=== PATIENT | male | born 1935 | race Caucasian/White ===

== ENCOUNTER → 2016-06-03 | Outpatient (CLI) | payer OTHER ==
--- NOTE | ~2016-06-03 | CT57 ---
[facility] A Service of [facility] RADIOLOGY TEXT RESULTS PATIENT: HERNÁN FAY LOCATION: [facility] : 37 UNIT #: [id number] AGE: [address]: Jann Martin MD SEX: M ORDER DR: [id number] [facility]. [place], [place] [address] [id number] O MR#: [id number] Acc #: [id number] NAME: HERNÁN FAY : 1935 SEX: M STUDY DATE/TIME: 06/03/2016 8:00 UNIT: [facility] ROOM: STUDY DESCRIPTION: CT Chest Wo Cont Attending Physician: Jann Martin M.D. Referring Physician: Jann Martin M.D. Ordering Physician: Jann Martin M.D. Primary Care Physician: Jann Martin M.D. MEDICAL IMAGING REPORT This report is preliminary unless electronic signature is present EXAM CT Chest INDICATIONS Pneumonia. Right middle lobe pneumonia. Restaging. TECHNIQUE CT of the thorax without contrast. Coronal and sagittal reconstructions were obtained. This CT exam was performed with one or more of the following radiation dose reduction techniques: automatic control, adjustment of mA and/or kV according to patient size, and iterative reconstruction. COMPARISON CT thorax dated 01/16/2016. FINDINGS The areas of patchy tree-in-bud nodularity in the right lower lobe and right middle lobe are again noted. The nodularity and mucous plugging in the superior segment right lower lobe has increased since the prior study. There is a tree-in-bud nodularity in the lateral right middle lobe and the more inferior right lower lobe are either unchanged to slightly improved. This would indicate a persistent or recurrent inflammatory/infectious process. There is no dense areas of consolidation. No pathologically enlarged mediastinal or hilar lymph nodes. The thoracic aorta is normal in caliber. No pericardial or pleural effusion. There is a benign cyst in the superior right kidney. No acute osseous abnormalities. A T5 compression fracture which is unchanged. [facility] A Service of [facility] RADIOLOGY TEXT RESULTS PATIENT: HERNÁN FAY LOCATION: [facility] : 37 UNIT #: [id number] AGE: [address]: Jann Martin MD SEX: M ORDER DR: IMPRESSION 1. An area of tree-in-bud nodularity in the superior segment of the right lower lobe has increased suggesting either recurrent or persistent infection. 2. Tree-in-bud nodularity in the right middle lobe and more inferior portions of the right lower lobe are either stable or slightly improved. Dictated by... Massimo Smith M.D. THIS IS AN ELECTRONICALLY VERIFIED REPORT Massimo Smith M.D. at 06/03/2016 6:28 PM RPArmando/ronaldor TD: 06/03/2016 17:26 JOB #: [id number] MEDICAL IMAGING REPORT COPY
== END | disposition home or self-care (01) ==
LOC: CCAT 07:37
DX: J18.9 Pneumonia, unspecified organism (principal); R91.8 Other nonspecific abnormal finding of lung field
CPT/HCPCS: 71250